=== PATIENT | male | born 1985 | race Hispanic/Latino ===

== ENCOUNTER 2016-12-27 03:16 | Emergency (ER) | payer OTHER ==
[2016-12-27] MEDS ORDERED: Albuterol-Ipratrop 3 mg / 0.5 (3 ml) UD ONE ×3 (03:39→05:58)
[2016-12-27] MEDS ORDERED: Albuterol-Ipratrop 3 mg / 0.5 (3 ml) UD INH STA ×4 (03:41→05:54)
[2016-12-27] MEDS ORDERED: MethylPREDNISolone 40 mg Vial IVP STA (03:41)
[2016-12-27] MEDS ORDERED: DiphenhydrAMINE 50 mg/ml Inj IVP STA (03:47)
[2016-12-27] MEDS ORDERED: DiphenhydrAMINE 50 mg/ml Inj ONE (04:36)
--- NOTE | 2016-12-27 04:40 | C.PDOC ---
History Of Present Illness 31 year old male with a Hx of asthma presents to the ER with a complaint of coughing, chest tightness, and SOB for the past few days. Patient states he has been using a nebulizer at home with minimal relief. Patient reports having nasal congestion and increased SOB today which prompted visit. Denies fever, sick contact, or recent travel. Time Seen by Provider: 12/27/16 03:37 Chief Complaint (Nursing): Shortness Of Breath History Per: Patient History/Exam Limitations: no limitations Onset/Duration Of Symptoms: Days Current Symptoms Are (Timing): Still Present Quality: Tightness Current Respiratory Medications: See Home Med List Associated Symptoms: denies: Fever Past Medical History Reviewed: Historical Data, Nursing Documentation, Vital Signs Vital Signs: Last Vital Signs Temp 98.4 F 12/27/16 03:18 Pulse 93 H 12/27/16 03:18 Resp 22 12/27/16 03:23 BP 145/92 H 12/27/16 03:18 Pulse Ox 93 L 12/27/16 04:46 - Medical History PMH: Asthma Surgical History: No Surg Hx Family History: States: Unknown Family Hx - Social History Hx Alcohol Use: Yes Hx Substance Use: Yes - Immunization History Hx Tetanus Toxoid Vaccination: No Hx Influenza Vaccination: No Hx Pneumococcal Vaccination: No Review Of Systems Constitutional: Negative for: Fever ENT: Positive for: Nose Congestion Respiratory: Positive for: Cough, Shortness of Breath, Other (Chest tightness) Physical Exam - Physical Exam Appears: Non-toxic Skin: Normal Color, Warm, Dry Head: Atraumatic, Normacephalic Nose: Discharge (Clear), Other (Enlarged nasal turbinates) Oral Mucosa: Moist Throat: Normal, No Erythema, No Exudate Neck: Normal, Supple Chest: Symmetrical, No Tenderness Cardiovascular: Rhythm Regular, No Murmur Respiratory: No Rales, No Rhonchi, Wheezing (Diffuse) Neurological/Psych: Oriented x3, Normal Speech, Normal Cognition ED Course And Treatment O2 Sat by Pulse Oximetry: 93 (Room air) Pulse Ox Interpretation: Abnormal (low) Progress Note: Duoneb, benadryl, and solumedrol administered. On reeval- pt is no longer wheezing and in no resp distress. Pt reports much improvement, and is ambulatory without dyspnea. Pt is requesting to leave, will give RX and understands return precautions. Disposition Counseled Patient/Family Regarding: Diagnosis, Need For Followup - Disposition Referrals: Donnie Archuleta MD [Medical Doctor] - Disposition: HOME/ ROUTINE Disposition Time: 06:49 Condition: STABLE Additional Instructions: Please follow up with PMD Take meds as prescribed Increase fluids Return to ER if worse Prescriptions: Benzonatate [Tessalon Perles] 100 mg PO TID #20 sgl Cetirizine HCl [Zyrtec] 10 mg PO DAILY #20 capsule predniSONE [Prednisone] 40 mg PO DAILY #8 tab Instructions: Asthma (ED) - Clinical Impression Clinical Impression: Respiratory tract infection, Asthma with exacerbation - Scribe Statement The provider has reviewed the documentation as recorded by the Scribe Elkin Lizama All medical record entries made by the Scribe were at my direction and personally dictated by me. I have reviewed the chart and agree that the record accurately reflects my personal performance of the history, physical exam, medical decision making, and the department course for this patient. I have also personally directed, reviewed, and agree with the discharge instructions and disposition.
[2016-12-27 07:06] VITALS: BP 111/66; PULSE 68; RESP 18; TEMP 98.2; O2SAT 98
== END 2016-12-27 07:05 | disposition home or self-care (01) ==
LOC: C.ER 03:16
DX: J06.9 Acute upper respiratory infection, unspecified (principal); J45.901 Unspecified asthma with (acute) exacerbation
CPT/HCPCS: 96374; 96375; 99284; J1200; J2920

== ENCOUNTER 2017-04-16 03:24 | Emergency (ER) | payer OTHER ==
[2017-04-16] MEDS ORDERED: Albuterol 0.083% Inhal Sol (2.5 mg/3 mL) UD IH STA (04:17)
[2017-04-16 04:23] VITALS: PULSE 70; RESP 16; TEMP 98; O2SAT 99
--- NOTE | 2017-04-16 05:01 | C.PDOC ---
History Of Present Illness 31 y/o male presents to ED with complaints of chest tightness and requesting albuterol refill. Patient states "I am not that bad but I ran out of my albuterol".No other complaints at this time. (+) smoke (-) chest pain (-) sob. Time Seen by Provider: 04/16/17 03:42 Chief Complaint (Nursing): Med Refill History Per: Patient History/Exam Limitations: no limitations Onset/Duration Of Symptoms: Days Current Symptoms Are (Timing): Still Present Past Medical History Reviewed: Historical Data, Nursing Documentation, Vital Signs Vital Signs: Last Vital Signs Temp 98 F 04/16/17 05:30 Pulse 70 04/16/17 05:30 Resp 16 04/16/17 05:30 BP 118/72 04/16/17 05:30 Pulse Ox 99 04/19/17 22:55 - Medical History PMH: Anxiety, Asthma Surgical History: No Surg Hx Family History: States: No Known Family Hx - Social History Hx Alcohol Use: Yes Hx Substance Use: Yes - Immunization History Hx Tetanus Toxoid Vaccination: No Hx Influenza Vaccination: No Hx Pneumococcal Vaccination: No Review Of Systems Constitutional: Negative for: Fever, Chills Cardiovascular: Positive for: Chest Pain Respiratory: Negative for: Cough, Shortness of Breath Gastrointestinal: Negative for: Nausea, Vomiting Skin: Negative for: Rash Neurological: Negative for: Weakness, Numbness, Dizziness Physical Exam - Physical Exam Appears: Non-toxic, No Acute Distress (speaking in full sentences) Skin: Normal Color, Warm, Dry, No Rash Head: Atraumatic, Normacephalic Eye(s): bilateral: Normal Inspection, EOMI Nose: Normal Oral Mucosa: Moist Neck: Normal, Normal ROM, Supple Chest: Symmetrical Cardiovascular: Rhythm Regular Respiratory: Normal Breath Sounds, No Accessory Muscle Use, No Rales, No Rhonchi , No Wheezing Gastrointestinal/Abdominal: Soft, No Tenderness, No Guarding, No Rebound Neurological/Psych: Oriented x3 ED Course And Treatment O2 Sat by Pulse Oximetry: 99 (RA) Pulse Ox Interpretation: Normal Progress Note: 1 albuterol ordered. On re-evaluation patient feeling feel better. Discussed smoking cessation and follow up with PMD in 1-2 days Disposition - Disposition Referrals: Non [facility] Provider, [Primary Care Provider] - Disposition: HOME/ ROUTINE Disposition Time: 05:01 Condition: STABLE Prescriptions: Albuterol HFA [Ventolin HFA 90 mcg/actuation (8 g)] 2 puff IH [id number] #1 puff Instructions: Asthma (ED) Forms: [facility] (Bangladeshi) - Clinical Impression Clinical Impression: Asthma with exacerbation - PA / SURGICAL NURSE / Resident Statement MD/DO has reviewed & agrees with the documentation as recorded. - Scribe Statement The provider has reviewed the documentation as recorded by the Danyelleibsusan Thapa All medical record entries made by the Danyelleibsusan were at my direction and personally dictated by me. I have reviewed the chart and agree that the record accurately reflects my personal performance of the history, physical exam, medical decision making, and the department course for this patient. I have also personally directed, reviewed, and agree with the discharge instructions and disposition.
[2017-04-16 05:31] VITALS: BP 118/72
== END 2017-04-16 05:31 | disposition home or self-care (01) ==
LOC: C.ER 03:24 → SUPCPDRO 03:24 → C.ER 05:31
DX: J45.901 Unspecified asthma with (acute) exacerbation (principal)